=== PATIENT | male | born 1970 | race Caucasian/White ===

== ENCOUNTER → 2019-06-24 | Outpatient (CLI) | payer OTHER ==
[~2019-06-24] MED LIST: AMOCLA875 PO; Amitriptyline H10 MG PO; Atarax10 MG PO; Ativan1 MG PO; BACL10 PO; Baclofen10 MG PO; Dilantin 100 m100 MG PO; GABA800 PO; HYDACE10B PO; IBUP400 PO; LIDO5TP TOP; MIRT30 PO; NAPR500 PO; NICO21TP TD; OXYACE7.5T PO; Omeprazole20 M1 PO; Percocet 10-321 EACH PO; Percocet 5-3251 EACH PO; QUET25 PO; RXAMOCLASU PO; Silvadene20 GM TOP; Ultram50 MG PO; Zanaflex4 M1 PO
== END | disposition home or self-care (01) ==
LOC: LAB SHORT 12:42 → LAB EV 12:42
DX: L02.91 Cutaneous abscess, unspecified (principal)
CPT/HCPCS: 87070; 87075; 87077; 87147; 87186; 87205

== ENCOUNTER 2020-10-15 09:27 | Emergency (ER) | payer OTHER ==
[~2020-10-15] VITALS: Ht 177.8 cm; Wt 103.4 kg
[2020-10-15] MEDS ORDERED: METPRE4DP PO (15:40)
[2020-10-15] MEDS ORDERED: Robaxin750 MG PO (15:40)
[2020-10-15] MEDS ORDERED: Norco 7.5-3251 EACH PO (15:40)
== END 2020-10-15 15:59 | disposition home or self-care (01) ==
LOC: ER 09:27
DX: M54.5 Low back pain (principal); M54.16 Radiculopathy, lumbar region; G89.29 Other chronic pain; F17.210 Nicotine dependence, cigarettes, uncomplicated; Z91.81 History of falling
CPT/HCPCS: 72148; 99283-25; A9270